=== PATIENT | female | born 1985 | race Caucasian/White ===

== ENCOUNTER 2023-06-13 15:34 | Outpatient (OUT) | payer OTHER, SELFPAY ==
[2023-06-13 16:06] LABS: Basophils Absolute Auto 0.1 10^3/uL (0.0-0.1); Basophils Percent Auto 0.8 % (0.2-2.0); Eosinophils Absolute Auto 0.2 10^3/uL (0.0-0.7); Eosinophils Percent Auto 1.7 % (0.9-7.0); Hematocrit 41.2 % (36.0-48.0); Hemoglobin 13.8 g/dL (12.0-16.0); Immature Granulocytes Abs Auto 0.02 10^3/uL (0.00-0.03); Immature Granulocytes Pct Auto 0.2 % (0.0-0.5); Lymphocytes Absolute Auto 2.7 10^3/uL (1.2-3.8); Lymphocytes Percent Auto 26.5 % (20.5-60.0); Mean Corpuscular HGB Conc 33.5 g/dL (29.9-35.2); Mean Corpuscular Hemoglobin 31.8 pg (26.7-34.0); Mean Corpuscular Volume 94.9 fL (81.0-99.0); Mean Platelet Volume 10.5 fL (9.5-13.5); Monocytes Absolute Auto 0.6 10^3/uL (0.3-0.8); Neutrophils Absolute Auto 6.5 10^3/uL (1.4-6.5); Neutrophils Percent Auto 64.8 % (43.0-75.0); Platelet Count 228 10^3/uL (150-450); Red Blood Count 4.34 10^6/uL (4.20-5.40); Red Cell Distribution Width 13.5 % (11.0-15.0)
[2023-06-13 16:14] LABS: INR 0.94; Partial Thromboplastin Time 27.1 sec (22.3-36.2)
[2023-06-13 16:31] LABS: HCG Quantitative <1 mIU/mL; Thyroid Stimulating Hormone 0.899 uIU/mL (0.358-3.740)
[2023-06-13 16:33] LABS: Estimated Average Glucose 91 mg/dL; Glycohemoglobin A1C 4.8 % (4.5-6.2)
[2023-06-13 16:44] LABS: Free T4 1.01 ng/dL (0.76-1.46)
== END 2023-06-13 15:35 | disposition home or self-care (01) ==
PROVIDERS: PCP Family Medicine; Visit Provider Obstetrics & Gynecology
DX: Z01.419 Encounter for gynecological examination (general) (routine) without abnormal findings (principal); N92.1 Excessive and frequent menstruation with irregular cycle
CPT/HCPCS: 36415; 83036; 84439; 84443; 84702; 85025; 85610; 85730; 87624; G0145

== ENCOUNTER 2023-06-13 20:31 | Outpatient (REF) | payer OTHER, SELFPAY ==
[2023-06-17 09:08] LABS: Age Gdln ACOG Testing Note (.); HPV Aptima Negative (Negative); IGP, Aptima HPV, rfx 16/18,45 Note (.)
== END 2023-06-13 20:32 | disposition home or self-care (01) ==
LOC: LAB 20:31
PROVIDERS: PCP Family Medicine; Visit Provider Obstetrics & Gynecology
DX: Z01.419 Encounter for gynecological examination (general) (routine) without abnormal findings (principal)
CPT/HCPCS: 87624; G0145

== ENCOUNTER 2023-07-18 09:23 | Outpatient (OUT) | payer OTHER, SELFPAY ==
--- NOTE | 2023-07-18 09:29 | MM_ITS ---
Patient: NADEEN AVILES Exam Date: 07/18/2023 : 1985 Gender:F Ordering : DR Tereso Piña . Admission #: [id number] Family : DR Sundar Villar . Order #: [id number] CLICK HERE TO VIEW EXAM RADIOLOGY REPORT PROCEDURE: MM TOMOSYNTHESIS SCREENING BI COMPARISON: None. INDICATIONS: Screening Calculator Name NCI Breast Cancer Risk Assessment Tool 5 Year Breast Cancer Risk 0.60% Lifetime Breast Cancer Risk 10.20% Personal Breast Cancer No Personal Ovarian Cancer No Treatments None Family Cancers None LOCATION: [facility] BREAST COMPOSITION: Heterogeneously dense,which may obscure small masses. FINDINGS: DIAGNOSTIC CATEGORY 1--NEGATIVE. NO CHANGE FROM COMPARISON ASSESSMENT. Scattered benign-appearing calcifications are present. Scattered benign-appearing lymph nodes are present. RIGHT BREAST: No significant suspicious finding. LEFT BREAST: No significant suspicious finding. RECOMMENDATIONS: ROUTINE MAMMOGRAM AND CLINICAL EVALUATION IN 12 MONTHS. PLEASE NOTE: A NORMAL MAMMOGRAM DOES NOT EXCLUDE THE POSSIBILITY OF BREAST CANCER. A CLINICALLY SUSPICIOUS PALPABLE LUMP SHOULD BE BIOPSIED. Dictated by: Sanya Mata MD on 07/18/2023 at 10:53 Approved by: Sanya Mata MD on 07/18/2023 at 10:54
--- NOTE | 2023-07-18 09:30 | US_ITS ---
The [address] [address] Patient Name: NADEEN AVILES MRN: [id number] date: 1985 Sex: F Assigned Patient Location: US Current Patient Location: US Accession/Order Number: [id number] Exam Date: 07/18/2023 09:31 Report Date: 07/18/2023 10:10 At the request of: DINA MURILLO Procedure: US pelvis transvaginal EXAMINATION: US pelvis transvaginal HISTORY: Menorrhagia N92.1 COMPARISON: No relevant comparison available. FINDINGS: Transvaginal images The uterus measures 10.4 x 3.8 x 6.0 cm. Identified in the anterior myometrium is a partially exophytic 3.2 x 3.1 x 2.6 cm solid mass. The endometrium measures 1.2 cm, normal for a premenopausal patient The ovaries are not visualized No free fluid US/US pelvis transvaginal IMPRESSION: 3.2 cm anterior myometrial mass, a uterine fibroid is statistically favored Electronically authenticated by: VALERIY BRADLEY Date: 07/18/2023 10:10
== END 2023-07-18 09:24 | disposition home or self-care (01) ==
LOC: US 09:23
PROVIDERS: PCP Family Medicine; Visit Provider Obstetrics & Gynecology
DX: Z12.31 Encounter for screening mammogram for malignant neoplasm of breast (principal); N92.1 Excessive and frequent menstruation with irregular cycle; N85.9 Noninflammatory disorder of uterus, unspecified
CPT/HCPCS: 76830; 77063; 77067

== ENCOUNTER 2023-08-26 07:58 | Outpatient (OUT) | payer OTHER, SELFPAY | END 2023-08-26 07:59 | disposition home or self-care (01) | LOC: PST 07:59 | PROVIDERS: PCP Family Medicine; Visit Provider Obstetrics & Gynecology | DX: Z01.818 Encounter for other preprocedural examination (principal); N92.1 Excessive and frequent menstruation with irregular cycle; N93.9 Abnormal uterine and vaginal bleeding, unspecified; R10.2 Pelvic and perineal pain ==

== ENCOUNTER 2023-09-02 08:13 | Day surgery (SDC) | payer OTHER, SELFPAY ==
[2023-08-26 08:33] VITALS: BP 142/85; PULSE 77; RESP 14; TEMP 36.4; O2SAT 99; BMI 26.0
[2023-09-02] VITALS (13 sets, daily range): BP systolic 115–174; BP diastolic 62–100; PULSE 53–77; RESP 13–24; TEMP 36.4–36.5; O2SAT 99–100
[2023-09-02 08:20] LABS: Basophils Absolute Auto 0.1 10^3/uL (0.0-0.1); Basophils Percent Auto 0.8 % (0.2-2.0); Eosinophils Absolute Auto 0.2 10^3/uL (0.0-0.7); Eosinophils Percent Auto 2.9 % (0.9-7.0); Hematocrit 41.3 % (36.0-48.0); Hemoglobin 13.8 g/dL (12.0-16.0); Immature Granulocytes Abs Auto 0.02 10^3/uL (0.00-0.03); Immature Granulocytes Pct Auto 0.3 % (0.0-0.5); Lymphocytes Absolute Auto 2.3 10^3/uL (1.2-3.8); Lymphocytes Percent Auto 30.7 % (20.5-60.0); Mean Corpuscular HGB Conc 33.4 g/dL (29.9-35.2); Mean Corpuscular Hemoglobin 32.5 pg (26.7-34.0); Mean Corpuscular Volume 97.2 fL (81.0-99.0); Mean Platelet Volume 10.1 fL (9.5-13.5); Monocytes Absolute Auto 0.5 10^3/uL (0.3-0.8); Monocytes Percent Auto 6.9 % (1.7-12.0); Neutrophils Absolute Auto 4.3 10^3/uL (1.4-6.5); Neutrophils Percent Auto 58.4 % (43.0-75.0); Platelet Count 226 10^3/uL (150-450); Red Blood Count 4.25 10^6/uL (4.20-5.40); Red Cell Distribution Width 13.6 % (11.0-15.0); White Blood Count 7.4 10^3/uL (4.0-11.0)
[2023-09-02] MEDS: LACTATED RINGER'S SOLUTION 1,000 ML 50 ML IV (08:41)
[2023-09-02] MEDS: SCOPOLAMINE 1 MG/3 DAYS TRANSDERM PATCH 1 PATCH TD (08:49)
[2023-09-02 08:52] LABS: HCG Quantitative <1 mIU/mL
--- NOTE | 2023-09-02 10:57 | PM.ONB ---
Brief Operative Note Date of procedure: 09/02/23 Pre-op diagnosis: menorrhagia Post-op diagnosis: same as pre-op Procedure: NAME OF PROCEDURE: [ ] Lucy endometrial ablation with hysteroscopy. PROCEDURE: The patient was taken back to the OR where she was prepped and draped in the normal sterile fashion after being placed in the dorsal lithotomy position, after being placed under general anesthesia without difficulty.? A weighted speculum was placed into the vagina. The anterior lip was grasped with a single tooth tenaculum. The patient was then sounded to approximated 8cm. The patient?s cervix was gently dilated using hegardilators. The hysteroscope was passed through the cervix into the uterus where both ostia were seen. No gross evidence of polyps, fibroids or malignancy. The cervical length was noted to be 4 cm. The total cavity length is 4cm.? The Lucy ablation apparatus was set to approximately 4cm in length. This was placed through the cervix and into the uterus. After the seal was tested, at that time the total ablation of 120 seconds was performed with the Lucy withoutdifficulty. All instruments were removed from the vagina. Excellent hemostasis noted.? Sponge and lap count correct times 2.? Patient taken to recovery in stable condition. Anesthesia: GETA Surgeon: Tereso Piña Estimated blood loss (mL): 5 Pathology: none sent Condition: stable Disposition: PACU
[2023-09-02] MEDS: HYDROCODONE/ACET 5-325 MG TABLET 1 TAB PO (11:56)
== END 2023-09-02 12:24 | disposition home or self-care (01) ==
PROVIDERS: PCP Family Medicine; Visit Provider Obstetrics & Gynecology
PROC: (CPT 58563; principal; 2023-09-02 09:30)
DX: N92.1 Excessive and frequent menstruation with irregular cycle (principal); N93.9 Abnormal uterine and vaginal bleeding, unspecified; R10.2 Pelvic and perineal pain
CPT/HCPCS: 58563; 36415; 84702; 85025; J2704